=== PATIENT | male | born 1985 | race Hispanic/Latino ===

== ENCOUNTER 2021-12-25 11:17 | Emergency (ER) | payer SELFPAY ==
[~2021-12-25] VITALS: Ht 170.2 cm; Wt 91.4 kg
[2021-12-25] MEDS ORDERED: VALTREX1000 MG PO (12:35)
[2021-12-25] MEDS ORDERED: GABAPENTIN100 MG PO (12:39)
[2021-12-25] MEDS ORDERED: ACETAMINOPHEN-1 EAC4 PO (12:40)
[2021-12-25 13:00] VITALS: BP 157/96
== END 2021-12-25 13:01 | disposition home or self-care (01) ==
LOC: FSED 11:35
DX: B02.9 Zoster without complications (principal); F17.210 Nicotine dependence, cigarettes, uncomplicated
CPT/HCPCS: 99282